=== PATIENT | male | born 1965 | race Caucasian/White ===

== ENCOUNTER 2017-08-11 19:06 | Emergency (ER) | payer BC ==
[~2017-08-11] VITALS: Ht 167.6 cm; Wt 83.0 kg
[2017-08-11 19:20] VITALS: BP_SYST 153
[2017-08-11] MEDS ORDERED: ceFAZolin SODIUM 2 GM in D5W 100 ML IV ONE (20:00)
[2017-08-11] MEDS ORDERED: ceFAZolin SODIUM 1 GM VIAL ONE (20:15)
[2017-08-11 20:25] LABS: BASOPHILS # (AUTO) 0.1 K/uL (0.0-0.2); BASOPHILS % (AUTO) 0.8 % (0.0-2.0); EOSINOPHILS # (AUTO) 0.2 K/uL (0.0-0.4); EOSINOPHILS % (AUTO) 2.2 % (0.0-4.0); HEMATOCRIT 47.3 % (36-54); HEMOGLOBIN 15.9 g/dL (14.0-18.0); LYMPHOCYTES # (AUTO) 1.3 K/uL (1.0-5.5); LYMPHOCYTES % (AUTO) 11.7 % (20.5-51.5); MEAN CORPUSCULAR HEMOGLOBIN 31 pg (27-31); MEAN CORPUSCULAR HGB CONC 34 % (32-36); MEAN CORPUSCULAR VOLUME 91 fL (79.0-98.0); MONOCYTES % (AUTO) 8.8 % (1.7-9.3); NEUTROPHILS # (AUTO) 8.4 K/uL (1.8-7.7); NEUTROPHILS % (AUTO) 76.5 % (40.0-70.0); PLATELET COUNT (AUTO) 343 K/uL (130-430); RED BLOOD CELL COUNT(AUTO) 5.22 MIL/uL (4.2-6.2); RED CELL DISTRIBUTION WIDTH 12.5 % (9.0-15.0)
[2017-08-11 20:29] LABS: CALCIUM 8.9 mg/dL (8.4-11.0); CREATININE 0.96 mg/dL (0.55-1.30); POTASSIUM 3.8 mmol/L (3.5-5.1)
[2017-08-11 20:34] LABS: ALBUMIN 3.7 g/dL (3.4-4.8); TOTAL BILIRUBIN 0.5 mg/dL (0.0-1.0)
[2017-08-11 21:19] LABS: BILIRUBIN,URINE NEGATIVE (NEGATIVE); BLOOD, URINE 1+ (NEGATIVE); CLARITY/URINE CLEAR (CLEAR); COLOR,URINE YELLOW (YELLOW); GLUCOSE,URINE NEGATIVE (NEGATIVE); KETONES,URINE NEGATIVE (NEGATIVE); LEUKOCYTE ESTERASE ,URINE NEGATIVE (NEGATIVE); NITRITE, URINE NEGATIVE (NEGATIVE); PH,URINE 5.5 (5.0-8.0); PROTEIN URINE NEGATIVE (NEGATIVE); UROBILINOGEN,URINE 0.2 (0.2-1.0)
[2017-08-11 21:27] LABS: BACTERIA,URINE None Seen /HPF (None Seen); MUCUS,URINE None Seen /LPF (None Seen); RBC,URINE 0-3 /HPF (0-3); WBC,URINE NONE SEEN /HPF (0-3)
[2017-08-11 22:07] VITALS: BP_SYST 144
== END 2017-08-11 22:07 | disposition home or self-care (01) ==
LOC: SED 19:06
DX: L03.115 Cellulitis of right lower limb (principal); Z86.718 Personal history of other venous thrombosis and embolism
CPT/HCPCS: 36415; 80053; 81000; 85025; 87040; 93970; 96365; 99285; J0690

== ENCOUNTER 2019-03-01 18:42 | Emergency (ER) | payer BC ==
[~2019-03-01] VITALS: Ht 167.6 cm; Wt 77.1 kg
[2019-03-01 18:45] VITALS: BP_SYST 135
--- NOTE | 2019-03-01 18:45 | NUR ---
Patient triaged and placed in waiting room. VSS and patient appears in no acute distress at this time. Accompanied by , awaiting available bed, and MD notified of need for MSE.
--- NOTE | 2019-03-01 23:15 | NUR ---
Pt ambulatory to bed 4 for evaluation
--- NOTE | 2019-03-02 00:05 | NUR ---
ER at bedside examining patient.
--- NOTE | 2019-03-02 00:05 | NUR ---
Pt brought in by . Pt awake, alert, oriented x4. Pt states that he works 16 hour shifts wearing heavy boots and he regularly gets athletes foot. Pt states that he has had increased pain in bilateral feet, with macerated white flaky skin. Pt states that he has no other medical complaint at this time. Pt denies chest pain, shortness of breath, diarrhea, nausea, vomiting, dizziness. Pt denies any other medical complaint at this time. Pt Resting in ED bed comfortably, no distress. VSS
--- NOTE | 2019-03-02 01:00 | NUR ---
Pt resting in ED bed comfortably.
[2019-03-02] MEDS ORDERED: CLINDAMYCIN PHOSPHATE 300 MG/2 ML VIAL IM ONE (01:15)
[2019-03-02 02:00] VITALS: BP_SYST 130
--- NOTE | 2019-03-02 02:00 | NUR ---
Patient given written and verbal discharge instructions and verbalizes understanding. ER MD discussed with patient the results and treatment provided. Patient in stable condition. ID arm band removed. No IV Rx of Prednisone and Clindamycin given. Patient educated on pain management and to follow up with PMD. Pain Scale 0/10. Opportunity for questions provided and answered. Medication side effect fact sheet provided.
== END 2019-03-02 02:00 | disposition home or self-care (01) ==
LOC: SED 18:42
DX: L03.116 Cellulitis of left lower limb (principal); B35.3 Tinea pedis; J06.9 Acute upper respiratory infection, unspecified; E11.9 Type 2 diabetes mellitus without complications; I10 Essential (primary) hypertension
CPT/HCPCS: 82962; 96372; 99283; J3490

== ENCOUNTER 2019-04-27 18:58 | Emergency (ER) | payer BC ==
[~2019-04-27] VITALS: Ht 167.6 cm; Wt 78.9 kg
[2019-04-27 19:33] VITALS: BP_SYST 115
--- NOTE | 2019-04-27 19:42 | NUR ---
Pt placed to ER waiting room in stable condition.
--- NOTE | 2019-04-27 19:59 | NUR ---
Patient to ER bed 4 to gown for evaluation. Side rails up. Report given to LUDMILA Simons.
--- NOTE | 2019-04-27 20:21 | NUR ---
Pt AAOx4 presents to ED c/o redness and swelling to L foot x 1 month. Pt reports he was hospitalized for cellulitis of the same extremity, but the pain and swelling persists. No other injuries/complaints per pt/noted. Will continue to monitor.
--- NOTE | 2019-04-27 22:05 | NUR ---
ER Dr. Velásquez at bedside examining patient.
[2019-04-27] MEDS ORDERED: cefTRIAXone 1 GM in LIDOCAINE 1%, 20 ML MDV 2.1 ML IM ONE (22:15)
--- NOTE | 2019-04-27 22:15 | NUR ---
XR at bedside.
--- NOTE | 2019-04-27 22:30 | NUR ---
Medication administered. Pt tolerated well. No adverse reactions noted. Will continue to monitor.
[2019-04-27 22:54] LABS: BASOPHILS # (AUTO) 0.1 K/uL (0.0-0.2); EOSINOPHILS # (AUTO) 0.2 K/uL (0.0-0.4); EOSINOPHILS % (AUTO) 2.8 % (0.0-4.0); HEMATOCRIT 42.2 % (36-54); HEMOGLOBIN 14.2 g/dL (14.0-18.0); LYMPHOCYTES # (AUTO) 1.1 K/uL (1.0-5.5); LYMPHOCYTES % (AUTO) 16.4 % (20.5-51.5); MEAN CORPUSCULAR HEMOGLOBIN 31 pg (27-31); MEAN CORPUSCULAR HGB CONC 34 % (32-36); MEAN CORPUSCULAR VOLUME 92 fL (79.0-98.0); MONOCYTES # (AUTO) 0.9 K/uL (0.0-1.0); MONOCYTES % (AUTO) 13.8 % (1.7-9.3); NEUTROPHILS # (AUTO) 4.5 K/uL (1.8-7.7); PLATELET COUNT (AUTO) 273 K/uL (130-430); RED BLOOD CELL COUNT(AUTO) 4.61 MIL/uL (4.2-6.2); RED CELL DISTRIBUTION WIDTH 13.8 % (9.0-15.0); WHITE BLOOD COUNT (AUTO) 6.8 K/uL (4.8-10.8)
[2019-04-28 01:39] VITALS: BP_SYST 119
--- NOTE | 2019-04-28 01:39 | NUR ---
Patient given written and verbal discharge instructions and verbalizes understanding. ER MD Velásquez discussed with patient the results and treatment provided. Patient in stable condition. ID arm band removed. Rx of [place], Keflex, Ibuprofen, given. Patient educated on pain management and to follow up with PMD. Pain Scale 0. Opportunity for questions provided and answered. Medication side effect fact sheet provided.
== END 2019-04-28 01:39 | disposition home or self-care (01) ==
LOC: SED 18:58
DX: L03.116 Cellulitis of left lower limb (principal); E11.9 Type 2 diabetes mellitus without complications; I10 Essential (primary) hypertension; Z86.718 Personal history of other venous thrombosis and embolism
CPT/HCPCS: 36415; 73620; 85025; 87040; 87070; 87075; 96372; 99284; J0696; J2001